=== PATIENT | female | born 1995 | race African-American/Black ===

== ENCOUNTER 2016-08-30 22:58 | Emergency (ER) | payer BC, OTHER ==
[2016-08-31] MEDS ORDERED: DIPH/PERTUSS(ACELL)/TETANUS VAC/PF 0.5 ML SYR (>=10YO) IM ONE (04:00)
[2016-08-31] MEDS ORDERED: LIDOCAINE 1%/EPINEPHRINE INJ 20 ML VIAL INJ ONE ×2 (04:00→05:44)
--- NOTE | 2016-08-31 04:38 | ER Document Report ---
ED General - General Chief Complaint: Laceration Stated Complaint: ARM LACERATION Time Seen by Provider: 08/31/16 03:57 Notes: Patient is a 21-year-old female presents with complaint of a laceration to her right arm. Patient says that there is a screw loose on her screen door. The screw was sticking out when she closed the door and it caught her forearm and caused a cut in her forearm. She is unsure when the last tetanus shot it was. She denies any weakness or numbness into her hand. She has no other complaints at this time. - Related Data Allergies/Adverse Reactions: No Known Allergies Allergy (Unverified 08/30/16 23:03) Past Medical History - Social History Smoking Status: Never Smoker Frequency of alcohol use: None Drug Abuse: None Family History: None Renal/ Medical History: Denies: Hx Peritoneal Dialysis - Immunizations Immunizations up to date: Yes Hx Diphtheria, Pertussis, Tetanus Vaccination: Yes Review of Systems - Review of Systems Notes: My Normal Review Basic REVIEW OF SYSTEMS: CONSTITUTIONAL : Denies fever, chills, or sweats. Denies recent illness. MUSCULOSKELETAL: Laceration right forearm. SKIN: Denies rash or skin lesions. NEUROLOGICAL: Denies altered mental status or loss of consciousness. Denies headache. Denies weakness or paralysis or loss of use of either side. Denies problems with gait or speech. Denies sensory or motor loss. ALL OTHER SYSTEMS REVIEWED AND NEGATIVE. Physical Exam - Vital signs Vitals: Temp Pulse Resp BP Pulse Ox 98.7 F 91 15 121/67 99 08/30/16 23:07 08/30/16 23:07 08/30/16 23:07 08/30/16 23:07 08/30/16 23:07 - Notes Notes: General Appearance: Well nourished, alert, cooperative, no acute distress, no obvious discomfort. Vitals: reviewed, See vital signs table. Eyes: PERRL Extremities: strength 5/5 in all extremities, good pulses in all extremities, 3 cm gaping laceration over the right forearm. No tenderness injuries seen. Distal sensation in the right hand is intact. Patient has full strength of all fingers of the right hand. She has full opposition of the little finger with thumb. She is able to abduct and adduct the fingers or hand without difficulty. , no edema. Skin: warm, dry, appropriate color, no rash Neuro: speech clear, oriented x 3, normal affect, responds appropriately to questions. Distal sensation intact. Course - Vital Signs Vital signs: Temp Pulse Resp BP Pulse Ox 98.7 F 91 15 121/67 99 08/30/16 23:07 08/30/16 23:07 08/30/16 23:07 08/30/16 23:07 08/30/16 23:07 - Transfer of Care Notes: 08/31/16 06:10 Patient was thoroughly irrigated and sutured closed. Patient has normal distal neurovascular exam. She is ncouraged to return to ER in 7 days for suture removal. She is encouraged to return to the ER immediately if she has redness, erythema, or signs of infection. Patient agrees with plan will be discharged home. Dictation of this chart was performed using voice recognition software; therefore, there may be some unintended grammatical errors. Procedures - Laceration/Wound Repair right forearm Wound length (cm): 3 Wound's Depth, Shape: Linear Laceration pre-procedure: Sterile drapes applied, Shur-Clens applied Anesthetic type: 1% Lidocaine w/epi Volume Anesthetic (mLs): 2 Wound explored: Clean Irrigated w/ Saline (mLs): 40 Wound Repaired With: Sutures Suture Size/Type: 4:0, Ethilon Number of Sutures: 4 Layer Closure?: Yes Deep Layer Suture Size/Type: 4:0, Other - vicryl Number Deep Layer Sutures: 2 Post-procedure wound care: Sterile dressing applied Post-procedure NV exam normal: Yes Complications: No Discharge - Discharge Clinical Impression: Laceration Condition: Good Disposition: HOME, SELF-CARE Additional Instructions: LACERATION CARE: Your laceration has been sutured to keep the skin edges aligned during healing. The time of suture removal depends on the nature and location of your cut. Please follow the care instructions the doctor has outlined for you and return for further care, according to the schedule you've been given. Keep the wound and dressing clean. Unless you were told otherwise, you may shower daily, blotting the wound dry with a clean, unused towel. At other times, If the dressing gets wet or blood soaked, remove it and blot the wound dry, then reapply a new dressing. Unless you were instructed otherwise, dressings should be changed at least daily. If any signs of infection occur (swelling, redness, drainage, increasing tenderness, red streaks, tender lumps in the armpit or groin above the laceration, or fever), see the doctor immediately. SOAP CLEANSING: Gently wash the wound daily using a mild soap (like Ivory, Phisoderm, Neutrogena). Use warm water, rubbing gently until all debris, ooze, and crusting have been washed from the wound. Allow to dry briefly (about 10 minutes) after cleaning. Repeat this cleansing at least three times a day for the first two days and then once or twice a day. TETANUS IMMUNIZATION GIVEN: You have been given an immunization against tetanus. Please record this in your records. In general, a booster is needed only once every 10 years. The tetanus shot protects against tetanus or "lockjaw," which is a complication of certain wound infections (the tetanus shot cannot protect against the actual infection). The immunization site may become warm and red due to local reaction. If this occurs, apply warm compresses and take aspirin or ibuprofen to reduce inflammation and discomfort. Return for evaluation if the reaction becomes severe. FOLLOW-UP CARE: Your sutures should be removed in __7___ days. To facilitate a timely removal of your sutures, you may return to the Emergency Department at [facility]. You do not need to call for an appointment, but the best time to come in for suture removal is early in the morning. If you have been referred to another physician for follow-up care, call that physicians office for an appointment as you were instructed. If you experience a significant change in your laceration, or if you are concerned there may be an infection (swelling, redness, drainage, increasing tenderness, red streaks, tender lumps in the armpit or groin above the laceration, or fever) , return to the Emergency Department immediately re-evaluation.
[2016-08-31 06:32] VITALS: BP 106/62
== END 2016-08-31 06:32 | disposition home or self-care (01) ==
LOC: ER 22:58
PROC: 0HQDXZZ Repair Right Lower Arm Skin, External Approach (ICD-10-PCS; principal; 2016-08-30)
DX: S51.811A Laceration without foreign body of right forearm, initial encounter (principal); W26.8XXA Contact with other sharp object(s), not elsewhere classified, initial encounter; Y92.009 Unspecified place in unspecified non-institutional (private) residence as the place of occurrence of the external cause; Z23 Encounter for immunization
CPT/HCPCS: 12002; 99282; 90715; J3490

== ENCOUNTER 2017-06-08 07:45 | Emergency (ER) | payer OTHER ==
--- NOTE | 2017-06-08 08:29 | ER Document Report ---
ED General - General Chief Complaint: Psych Problem Stated Complaint: PSYCH EVAL Mode of Arrival: Ambulatory Information source: Patient TRAVEL OUTSIDE OF THE [place] IN LAST 30 DAYS: No - HPI Patient complains to provider of: anxiety Onset: Just prior to arrival Onset/Duration: Sudden Quality of pain: No pain Severity: Moderate Pain Level: Denies Associated symptoms: None Exacerbated by: Denies Relieved by: Denies Similar symptoms previously: No Recently seen / treated by doctor: No - Related Data Allergies/Adverse Reactions: No Known Allergies Allergy (Verified 06/08/17 07:45) Past Medical History - General Information source: Patient - Social History Smoking Status: Unknown if Ever Smoked Family History: None Renal/ Medical History: Denies: Hx Peritoneal Dialysis - Immunizations Immunizations up to date: Yes Hx Diphtheria, Pertussis, Tetanus Vaccination: Yes Review of Systems - Review of Systems Notes: REVIEW OF SYSTEMS: CONSTITUTIONAL : Denies fever, chills, or sweats. Denies recent illness. EENT: Denies eye, ear, throat, or mouth pain or symptoms. Denies nasal or sinus congestion or discharge. Denies throat, tongue, or mouth swelling or difficulty swallowing. CARDIOVASCULAR: Denies chest pain. Denies palpitations or racing or irregular heart beat. Denies ankle edema. RESPIRATORY: Denies cough, cold, or chest congestion. Denies shortness of breath, difficulty breathing, or wheezing. GASTROINTESTINAL: Denies abdominal pain or distention. Denies nausea, vomiting , or diarrhea. Denies blood in vomitus, stools, or per rectum. Denies black, tarry stools. Denies constipation. GENITOURINARY: Denies difficulty urinating, painful urination, burning, frequency, blood in urine, or discharge. FEMALE GENITOURINARY: Denies vaginal bleeding, heavy or abnormal periods, irregular periods. Denies vaginal discharge or odor. MUSCULOSKELETAL: Denies back or neck pain or stiffness. Denies joint pain or swelling. SKIN: Denies rash, lesions or sores. HEMATOLOGIC : Denies easy bruising or bleeding. LYMPHATIC: Denies swollen, enlarged glands. NEUROLOGICAL: Denies confusion or altered mental status. Denies passing out or loss of consciousness. Denies dizziness or lightheadedness. Denies headache. Denies weakness or paralysis or loss of use of either side. Denies problems with gait or speech. Denies sensory loss, numbness, or tingling. Denies seizures. PSYCHIATRIC: Reports anxiety or stress. Denies depression, suicidal ideation, or homicidal ideation. ALL OTHER SYSTEMS REVIEWED AND NEGATIVE. PHYSICAL EXAMINATION: GENERAL: Well-appearing, well-nourished and in no acute distress. HEAD: Atraumatic, normocephalic. EYES: Pupils equal round and reactive to light, extraocular movements intact, conjunctiva are normal. ENT: Nares patent, oropharynx clear without exudates. Moist mucous membranes. NECK: Normal range of motion, supple without lymphadenopathy LUNGS: Breath sounds clear to auscultation bilaterally and equal. No wheezes rales or rhonchi. HEART: Regular rate and rhythm without murmurs ABDOMEN: Soft, nontender, nondistended abdomen. No guarding, no rebound. No masses appreciated. Female : deferred Musculoskeletal: Normal range of motion, no pitting or edema. No cyanosis. NEUROLOGICAL: Cranial nerves grossly intact. Normal speech, normal gait. Normal sensory, motor exams PSYCH: Agitated, anxious. Denies any homicidal or suicidal ideation. SKIN: Warm, Dry, normal turgor, no rashes or lesions noted. Dictation was performed using [employer] voice recognition software Physical Exam - Vital signs Vitals: Temp Pulse Resp BP Pulse Ox 98.3 F 108 H 18 135/84 H 100 06/08/17 07:52 06/08/17 07:52 06/08/17 07:52 06/08/17 07:52 06/08/17 07:52 Course - Re-evaluation Re-evalutation: 06/08/17 22-year-old afebrile female who is vitals are stable as presents today for complaints of anxiety. After involving psych into patient's care well as speaking with parents, which was approved by patient, patient dropped out of college in [place] approximately 3 weeks ago, came to [place] because her mother lives here. Reports that she did use meth a year ago per the mother , mother states that she has been acting funny, called together day and was laughing and crying throughout the conversation for no reason. Patient was sent home from work on Tuesday due to "not feeling well" patient did admit to smoking meth 3 days ago. After conversing with the mental health team, it is unknown if the patient is having psychotic break, this is schizophrenia or if this is a side effect from taking methamphetamine. Patient has been petitioned to stay for the next 24 hours. Awaiting for lab results, patient was initially refusing. Patient given 20 mg IM of Geodon. CBC negative for leukocytosis or anemia. CMP negative for any electrolyte disturbances, hepatic or renal dysfunction. Cardiac enzymes negative, EKG without STEMI. Urinalysis negative for UTI proteinuria. Patient resting at bedside with father. No complaints. Patient checked every 2 hours, stable and in no distress. Disposition given to ALDAIR Escamilla, 1915. Patient be reevaluated in the morning by psych. - Vital Signs Vital signs: Temp Pulse Resp BP Pulse Ox 98.2 F 88 18 119/75 99 06/08/17 17:30 06/09/17 05:45 06/09/17 05:45 06/09/17 05:45 06/09/17 05:45 - Laboratory Result Diagrams: 06/08/17 13:45 06/08/17 13:45 Laboratory results interpreted by me: 06/08/17 13:45 Potassium 3.5 L Glucose 139 H Salicylates < 1.0 L Acetaminophen < 10 L - EKG Interpretation by Ar EKG shows normal: Sinus rhythm Rate: Normal Rhythm: NSR - no stemi
[2017-06-08] MEDS ORDERED: QUETIAPINE FUMARATE 100 MG TABLET PO ONE (09:02)
[2017-06-08] MEDS ORDERED: ZIPRASIDONE MESYLATE INJ/PF 20 MG SDV IM ONE (09:06)
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
[2017-06-08] MEDS ORDERED: OLANZAPINE INJ/PF 10 MG SDV IM ONE (11:46)
[2017-06-08] MEDS ORDERED: BENZTROPINE MESYLATE INJ 2 MG/2 ML AMPULE IM ONE (11:46)
[2017-06-08 13:56] LABS: ABSOLUTE LYMPHOCYTES (AUTO) 1.8 10^3/uL (0.5-4.7); ABSOLUTE MONOCYTES (AUTO) 0.5 10^3/uL (0.1-1.4); BASOPHILS % (AUTO) 0.2 % (0-2); EOSINOPHILS % (AUTO) 0.4 % (0-6); LYMPHOCYTES % (AUTO) 33.6 % (13-45); MEAN CORPUSCULAR HEMOGLOBIN 27.3 pg (27.0-33.4); MEAN CORPUSCULAR HGB CONC 33.3 g/dL (32.0-36.0); MEAN CORPUSCULAR VOLUME 82 fl (80-97); MONOCYTES % (AUTO) 10.1 % (3-13); PLATELET COUNT 420 10^3/uL (150-450); RED BLOOD COUNT 4.74 10^6/uL (3.72-5.28); RED CELL DISTRIBUTION WIDTH 13.9 % (11.5-14.0); SEGMENTED NEUTROPHILS % (AUTO) 55.7 % (42-78); TOTAL CELLS COUNTED % (AUTO) 100 %; WHITE BLOOD COUNT 5.3 10^3/uL (4.0-10.5)
[2017-06-08 14:12] LABS: ALANINE AMINOTRANSFERASE 24 U/L (9-52); ALBUMIN 4.5 g/dL (3.5-5.0); ALKALINE PHOSPHATASE 87 U/L (38-126); ANION GAP 12 (5-19); ASPARTATE AMINO TRANSFERASE 26 U/L (14-36); BILIRUBIN,DIRECT 0.1 mg/dL (0.0-0.4); BILIRUBIN,TOTAL 0.2 mg/dL (0.2-1.3); BLOOD UREA NITROGEN 8 mg/dL (7-20); CALCIUM 9.8 mg/dL (8.4-10.2); CARBON DIOXIDE 24 mmol/L (22-30); CHLORIDE 104 mmol/L (98-107); GLUCOSE 139 mg/dL (75-110); POTASSIUM 3.5 mmol/L (3.6-5.0); SODIUM 140.1 mmol/L (137-145); TOTAL PROTEIN 7.1 g/dL (6.3-8.2)
[2017-06-08 14:13] LABS: ACETAMINOPHEN < 10 ug/mL (10-30); ALCOHOL < 10 mg/dL (NONE DETECTED); SALICYLATE < 1.0 mg/dL (2.0-20.0)
[2017-06-08 14:30] LABS: APPEARANCE,URINE CLEAR; BILIRUBIN,URINE NEGATIVE (NEGATIVE); COLOR,URINE COLORLESS; GLUCOSE, URINE NEGATIVE (NEGATIVE); KETONES,URINE NEGATIVE (NEGATIVE); LEUKOCYTE ESTERASE,URINE NEGATIVE (NEGATIVE); NITRITE,URINE NEGATIVE (NEGATIVE); PROTEIN,URINE NEGATIVE (NEGATIVE); URINE SPECIFIC GRAVITY 1.003; UROBILINOGEN,URINE NEGATIVE mg/dL (<2.0)
[2017-06-08 14:35] LABS: URINE AMPHETAMINES SCREEN NEGATIVE; URINE BARBITURATES SCREEN NEGATIVE; URINE BENZODIAZEPINES SCREEN NEGATIVE; URINE COCAINE SCREEN NEGATIVE; URINE MARIJUANA (THC) SCREEN NEGATIVE; URINE METHADONE SCREEN NEGATIVE; URINE PHENCYCLIDINE SCREEN NEGATIVE
--- NOTE | 2017-06-08 23:02 | EKG REPORT ---
SEVERITY:- NORMAL ECG - SINUS RHYTHM : Confirmed by: Margarita Garcia 08-Jun-2017 23:01:19
--- NOTE | 2017-06-09 10:35 | ER Document Report ---
Doctor's Note Notes: 06/09/17 10:31 Rounds: Chart reviewed and patient not interviewed because in the shower when I made rounds. Being evaluated for anxiety and obsessive-compulsive disorder. Labs are all essentially normal with a potassium of 3.5, barely low. Vital signs are all essentially normal. Shayan Romero MD Nausea and vomited up her dinner. Zofran given. 06/09/17 18:50
[2017-06-09] MEDS ORDERED: BENZTROPINE MESYLATE 1 MG TABLET PO SCH (12:00)
[2017-06-09] MEDS ORDERED: OLANZAPINE 5 MG TABLET PO SCH (12:00)
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
[2017-06-09] MEDS ORDERED: ONDANSETRON 4 MG TAB.RAPDIS PO PRN (18:46)
[2017-06-10] MEDS ORDERED: OLANZAPINE INJ/PF 10 MG SDV IM SCH (10:00)
[2017-06-10] MEDS ORDERED: BENZTROPINE MESYLATE INJ 2 MG/2 ML AMPULE IM SCH (10:00)
--- NOTE | 2017-06-10 12:05 | ER Document Report ---
Doctor's Note Notes: 06/10/17 12:04 Rounds: Chart reviewed and patient interviewed. Patient says she is feeling better. All labs essentially normal. Vital signs also normal. Patient may be "cheeking" her medications so we have changed her to I am meds. Patient appears to be medically stable for transfer or discharge. Patient has been accepted for transfer to [facility] this afternoon. Shayan Romero MD
[2017-06-10 12:07] VITALS: BP 129/79
--- NOTE | 2017-06-12 06:08 | PSYCHOLOGICAL NOTE ---
Psych Note - Psych Note Psych Note: Reason for consult: Anxiety and erratic behavior Contact permission: Lucia Neves ( patient's mother)#[phone]; Rich Neves ( patient's father) Patient is a 22-year-old female. Clinician attempted assessment in the morning around 9:20 AM, patient was unable to answer assessment questions and repeatedly said "your momma, the mall, across the street". Clinician observed patient tried to leave AGAINST MEDICAL ADVICE and stated "I am just killing time , my dad (repeated this word several times) and was laughing inappropriately. Clinician observed patient was behaving erratically, and per report of nurse talking to herself, whispering to herself, and responding to internal stimuli. Clinician conducted check in with patient Patient's presentation has not improved. She is still demonstrating odd behaviors. Patient asks to speak with clinician alone and then just talks about random things growing up that does not have a clear connection to the current crisis. Patient admits to cheeking her medication. Attending nurse reported to clinician the patient demonstrated erratic behaviours last night. She got into the shower fully clothed twice in during the night and difficult to re-direct. Medication recommendations made by [facility] contracted psychiatric provider Dr. Geronimo MD includes: 1.Begin Zyprexa 5mg Twice daily for riley 2.Begin Cogentin 1mg daily for prevention of side effects from zyprexa. it is recommended to consider IM form instead of PO since the patient disclosed cheeking her medication Diagnosis: Per Hx: 300.00 ( F41.9) Unspecified Anxiety Disorder At this time further assessment is needed for a diagnosis Impression/Plan: Recommendation for continued involuntary commitment. Patient's behavior has not significantly improved. She is still demonstrating bizarre behavior. She is noted to have labile affect. Patient was accepted to [facility] ; transportation will occur today. Attending provider in agreement. Consulted with Dr. Brannon regarding the management and care of patient.
== END 2017-06-10 13:40 ==
LOC: ER 07:45
DX: F41.9 Anxiety disorder, unspecified (principal); F42.9 Obsessive-compulsive disorder, unspecified
CPT/HCPCS: 93005; 99285; 96372; 36415; 80307 ×4; 84703; 85025; 80053; 81001; 93010; J0515 ×2; S0119

== ENCOUNTER 2018-08-10 23:46 | Emergency (ER) | payer OTHER ==
[2018-08-10 23:53] VITALS: BP 133/83
--- NOTE | 2018-08-11 00:33 | ER Document Report ---
ED Medical Screen (RME) - General Chief Complaint: Other Stated Complaint: STITCHES RECHECKED Time Seen by Provider: 08/11/18 00:27 Mode of Arrival: Ambulatory Information source: Patient Notes: 23-year-old female presented to ED for reexamination of wound to the right arm. She states she cut her arm on broken glass yesterday and went to another facility had stitches placed. She states she was playing with the children in the yard and then got a shower and now she needs the sutures reexamined cleaned and rewrapped. She states that when told her not to get the area dirty and not to get it wet. TRAVEL OUTSIDE OF THE [place] IN LAST 30 DAYS: No - HPI Onset: Yesterday Quality of pain: No pain Severity: None Pain Level: Denies Associated Symptoms: Other - States she needs the laceration redressed because she got it wet Exacerbated by: Denies Relieved by: Denies Similar symptoms previously: Yes Recently seen / treated by doctor: Yes - Related Data Smoking: Non-smoker Frequency of alcohol use: None Drug Abuse: None Allergies/Adverse Reactions: No Known Allergies Allergy (Verified 06/08/17 07:45) Past Medical History - General Information source: Patient - Social History Cigarette use (# per day): No Frequency of alcohol use: None Drug Abuse: None Family history: Reviewed & Not Pertinent - Past Medical History Cardiac Medical History: Reports: None Pulmonary Medical History: Reports: None EENT Medical History: Reports: None Neurological Medical History: Reports: None Endocrine Medical History: Reports: None Renal/ Medical History: Reports: None Malignancy Medical History: Reports: None GI Medical History: Reports: None Musculoskeltal Medical History: Reports None Skin Medical History: Reports None Psychiatric Medical History: Reports: None Traumatic Medical History: Reports: None Infectious Medical History: Reports: None Surgical Hx: Negative Past Surgical History: Reports: None - Immunizations Immunizations up to date: Yes Hx Diphtheria, Pertussis, Tetanus Vaccination: Yes Review of Systems - Review of Systems Constitutional: No symptoms reported EENT: No symptoms reported Cardiovascular: No symptoms reported Respiratory: No symptoms reported Gastrointestinal: No symptoms reported Genitourinary: No symptoms reported Female Genitourinary: No symptoms reported Musculoskeletal: No symptoms reported Skin: Other - Laceration to right arm was sutured at another facility needs the area redressed Hematologic/Lymphatic: No symptoms reported Neurological/Psychological: No symptoms reported -: Yes All other systems reviewed and negative Physical Exam - Vital signs Vitals: Temp Pulse Resp BP Pulse Ox 98.0 F 91 18 133/83 H 100 08/10/18 23:49 08/10/18 23:49 08/10/18 23:49 08/10/18 23:49 08/10/18 23:49 Interpretation: Normal - General General appearance: Appears well, Alert - HEENT Head: Normocephalic, Atraumatic Eyes: Normal Pupils: PERRL - Respiratory Respiratory status: No respiratory distress Chest status: Nontender Breath sounds: Normal Chest palpation: Normal - Cardiovascular Rhythm: Regular Heart sounds: Normal auscultation Murmur: No - Abdominal Inspection: Normal Distension: No distension Bowel sounds: Normal Tenderness: Nontender Organomegaly: No organomegaly - Back Back: Normal, Nontender - Extremities General upper extremity: Normal inspection, Nontender, Normal color, Normal ROM, Normal temperature General lower extremity: Normal inspection, Nontender, Normal color, Normal ROM, Normal temperature, Normal weight bearing. No: Falguni's sign - Neurological Neuro grossly intact: Yes Cognition: Normal Orientation: AAOx4 [place] Coma Scale Eye Opening: Spontaneous [place] Coma Scale Verbal: Oriented [place] Coma Scale Motor: Obeys Commands [place] Coma Scale Total: 15 Speech: Normal Motor strength normal: LUE, RUE, LLE, RLE Sensory: Normal - Psychological Associated symptoms: Normal affect, Normal mood - Skin Skin Temperature: Warm Skin Moisture: Dry Skin Color: Normal Skin irregularity: Laceration - Patient states wound was sutured at another facility with 14 sutures. She states she was outside playing with her kids and took a shower got the dressing wet and needs the dressing changed. Location of irregularity: Extremities - Right arm, Other - There is also another small laceration that is not sutured on the right wrist Irregularity with: Tenderness Course - Re-evaluation Re-evalutation: 08/11/18 00:33 Patient states she is not having pain she just needs the dressing changed as she got the dressing wet during her shower after she was outside in the yard playing with the kids. - Vital Signs Vital signs: Temp Pulse Resp BP Pulse Ox 98.0 F 91 18 133/83 H 100 08/10/18 23:49 08/10/18 23:49 08/10/18 23:49 08/10/18 23:49 08/10/18 23:49 Doctor's Discharge - Discharge Clinical Impression: States she needs a new dressing to site Laceration of right wrist Qualifiers: Encounter type: initial encounter Qualified Code(s): S61.511A - Laceration without foreign body of right wrist, initial encounter Condition: Stable Disposition: HOME, SELF-CARE Instructions: Acetaminophen, Family Physicians / Practices Additional Instructions: You have been to this facility to have the dressing reapplied to your right wrist after you get the dressing wet. You state your wound was sutured at another facility. Please care for your wound as instructed by the facility who placed her sutures. Please keep the wound clean. Please follow-up with your primary provider for follow-up wound care as instructed by this physician that sutured your arm. FOLLOW-UP CARE: If you have been referred to a physician for follow-up care, call the physicians office for an appointment as you were instructed or within the next two days. If you experience worsening or a significant change in your symptoms, notify the physician immediately or return to the Emergency Department at any time for re-evaluation.
== END 2018-08-11 00:57 | disposition home or self-care (01) ==
LOC: ER 23:46
DX: S61.511A Laceration without foreign body of right wrist, initial encounter (principal); W25.XXXA Contact with sharp glass, initial encounter
CPT/HCPCS: 99282